=== PATIENT | female | born 1985 | race Caucasian/White ===

== ENCOUNTER 2016-12-13 08:47 | Emergency (ER) | payer SELFPAY ==
[~2016-12-13 08:47] MED LIST: AUGMENTIN 875-1 EACH PO; AUGMENTIN TAB875 MG PO; TYLENOL 325MG325 MG PO
== END 2016-12-13 11:55 | disposition home or self-care (01) ==
LOC: ER1 08:47
DX: H10.9 Unspecified conjunctivitis (principal); T78.40XA Allergy, unspecified, initial encounter
CPT/HCPCS: 71020; 84703; 87081; 87880; 99283

== ENCOUNTER 2017-03-14 11:54 | Emergency (ER) | payer OTHER | END 2017-03-14 12:51 | disposition home or self-care (01) | LOC: ER1 11:54 | DX: L03.032 Cellulitis of left toe (principal) | CPT/HCPCS: 99283 ==

== ENCOUNTER 2021-09-08 15:10 | Emergency (ER) | payer OTHER ==
[~2021-09-08 15:10] MED LIST changes: +BACTRIM DS TAB1 EACH PO; +DELSYM30 MG/5 ML PO; +FLONASE 0.05% N16 GM; +PREDNISONE 50 M50 MG PO; +ZYRTEC10 MG PO
[2021-09-08] MEDS ORDERED: BENZONATATE100 MG PO (17:22)
[2021-09-08] MEDS ORDERED: PROVENTIL HFA6.7 GM INH (17:22)
== END 2021-09-08 17:28 | disposition home or self-care (01) ==
LOC: ER1 15:10
DX: J40 Bronchitis, not specified as acute or chronic (principal); J06.9 Acute upper respiratory infection, unspecified; Z90.49 Acquired absence of other specified parts of digestive tract; Z20.822 Contact with and (suspected) exposure to COVID-19
CPT/HCPCS: 71046; 99283; U0002

== ENCOUNTER → 2021-12-21 | Outpatient (CLI) | payer OTHER ==
[~2021-12-21] MED LIST changes: +BENZONATATE100 MG PO; +PROVENTIL HFA6.7 GM INH
== END ==
LOC: HEART 5 14:55
DX: R00.2 Palpitations (principal)